=== PATIENT | male | born 1970 | race Caucasian/White ===

== ENCOUNTER 2019-05-04 23:24 | Emergency (ER) | payer OTHER ==
[2019-05-05] MEDS ORDERED: diphenhydrAMINE 50 MG CAP PO STA (00:19)
[2019-05-05] MEDS ORDERED: FAMOTIDINE 20 MG TAB PO STA (00:19)
[2019-05-05] MEDS ORDERED: predniSONE 20 MG TAB PO STA (00:19)
[2019-05-05 01:11] VITALS: BP 187/90; PULSE 92; RESP 16; TEMP 98.6
--- NOTE | 2019-05-18 09:34 | ED ---
Allergic Reaction HPI - General Chief complaint: Allergic Reaction Stated complaint: Allergic Reaction- Diff Breathing Time Seen by Provider: 05/05/19 00:12 Source: patient, family Mode of arrival: ambulatory Limitations: no limitations - History of Present Illness Initial Comments: is a 48-year-old man who presents to have evaluation of swelling to his forehead. Patient states that he was near his pool when he believes he was either bitten or stung by an insect forehead. He states that there was really much more swelling than he thought there should be so he wanted to be evaluated for ALLERGIC reaction. The patient is not having any dyspnea or wheezing. No tongue swelling. No generalized rash MD Complaint: facial swelling -: hour(s) Exposure: insect bite Symptoms: itching Severity: moderate Treatment Prior to Arrival: none Previous Allergy History: none - Related Data Previous Rx's Medication Instructions Recorded Famotidine [Pepcid] 20 mg PO BID #14 tablet 05/05/19 predniSONE 60 mg PO DAILY #30 tab 05/05/19 Allergies Allergy/AdvReac Type Severity Reaction Status Date / Time Penicillins Allergy Unknown Verified 05/04/19 23:32 Childhood Review of Systems ROS Statement: Those systems with pertinent positive or pertinent negative responses have been documented in the HPI. ROS Other: All systems not noted in ROS Statement are negative. Constitutional: Denies: fever Eyes: Denies: eye pain ENT: Denies: throat pain Respiratory: Denies: cough, dyspnea, wheezes Skin: Reports: as per HPI, lesions. Denies: rash Neurological: Denies: headache Past Medical History Past Medical History: No Reported History History of Any Multi-Drug Resistant Organisms: None Reported Additional Past Surgical History / Comment(s): kidney stones Past Psychological History: No Psychological Hx Reported Smoking Status: Current every day smoker Past Alcohol Use History: Occasional Past Drug Use History: None Reported General Exam Limitations: no limitations General appearance: alert, in no apparent distress Head exam: Present: atraumatic, normocephalic, other (The patient has a large wheal centered on the forehead approximately 5 cm diameter) Eye exam: Present: normal appearance. Absent: scleral icterus, conjunctival injection, periorbital swelling, periorbital tenderness ENT exam: Present: normal oropharynx, mucous membranes moist Respiratory exam: Present: normal lung sounds bilaterally. Absent: respiratory distress, wheezes, rales, rhonchi, stridor Cardiovascular Exam: Present: regular rate, normal rhythm, normal heart sounds. Absent: systolic murmur, diastolic murmur, rubs, gallop GI/Abdominal exam: Present: soft. Absent: tenderness Neurological exam: Present: alert Skin exam: Present: warm, dry, intact, normal color, other (See above) Course Vital Signs 05/04/19 05/04/19 05/05/19 23:29 23:40 01:09 Temperature 98.4 F 98.6 F Pulse Rate 103 H 92 Respiratory 20 20 16 Rate Blood Pressure 173/111 187/90 O2 Sat by Pulse 96 95 Oximetry Disposition Clinical Impression: Allergic reaction to insect sting Disposition: HOME SELF-CARE Condition: Good Instructions (If sedation given, give patient instructions): General Allergic Reaction (ED) Prescriptions: Famotidine [Pepcid] 20 mg PO BID #14 tablet predniSONE 60 mg PO DAILY #30 tab Is patient prescribed a controlled substance at d/c from ED?: No Referrals: None,Stated [Primary Care Provider] - 1-2 days
== END 2019-05-05 01:09 | disposition home or self-care (01) ==
LOC: EC 23:24
DX: T63.481A Toxic effect of venom of other arthropod, accidental (unintentional), initial encounter (principal); F17.200 Nicotine dependence, unspecified, uncomplicated; Z88.0 Allergy status to penicillin
CPT/HCPCS: 99283; J7512

== ENCOUNTER 2020-02-14 08:12 | Emergency (ER) | payer OTHER ==
[2020-02-14 08:21] VITALS: TEMP 97.6
[2020-02-14] MEDS ORDERED: LABETALOL 5 MG/ML VIAL MDV IVP STA (08:32)
[2020-02-14] MEDS ORDERED: SODIUM CHLORIDE 0.9% 500 ML 500 ML IV ONE (08:32)
[2020-02-14 09:10] LABS: Basophils # (A) 0.1 k/uL (0-0.2); Basophils % (A) 1 %; Eosinophils # (A) 0.3 k/uL (0-0.7); Eosinophils % (A) 3 %; HCT 49.6 % (39.0-53.0); HGB 17.2 gm/dL (13.0-17.5); Lymphocytes # (A) 1.4 k/uL (1.0-4.8); Lymphocytes % (A) 16 %; MCH 30.7 pg (25.0-35.0); MCHC 34.7 g/dL (31.0-37.0); MCV 88.4 fL (80.0-100.0); Mean Platelet Volume 8.2; Monocytes # (A) 0.3 k/uL (0-1.0); Monocytes % (A) 4 %; Neutrophils # (A) 6.9 k/uL (1.3-7.7); Neutrophils % (A) 76 %; Platelet Count 255 k/uL (150-450); RBC 5.61 m/uL (4.30-5.90); RDW 12.1 % (11.5-15.5); WBC 9.1 k/uL (3.8-10.6)
--- NOTE | 2020-02-14 09:20 | ED ---
General Adult HPI - General Chief complaint: Headache Stated complaint: hypertension Time Seen by Provider: 02/14/20 08:22 Source: patient, RN notes reviewed Mode of arrival: wheelchair Limitations: no limitations - History of Present Illness Initial comments: This a 49-year-old male presents emergency Department chief complaint hypertension, intermittent headaches. Patient states last week she's had almost daily headaches. He states he did come and go and they do go away. Patient denies any associated blurred vision, focal weakness, nausea vomiting no chest pain or shortness breath at this time. He states that he has pain 1-2 weeks ago. Patient states that he used to be on hypertension meds and states he used to be on lisinopril with hydrochlorothiazide. Patient states he discontinued this because he is having gout issues and also states that he change his diet in which she felt that he did not need to be on a blood pressure medication anymore. Patient has complaint of back pain, abdominal pain. - Related Data Previous Rx's Medication Instructions Recorded Famotidine [Pepcid] 20 mg PO BID #14 tablet 05/05/19 predniSONE 60 mg PO DAILY #30 tab 05/05/19 Lisinopril [Zestril] 10 mg PO DAILY #30 tab 02/14/20 Allergies Allergy/AdvReac Type Severity Reaction Status Date / Time Penicillins Allergy Unknown Verified 05/04/19 23:32 Childhood Review of Systems ROS Statement: Those systems with pertinent positive or pertinent negative responses have been documented in the HPI. ROS Other: All systems not noted in ROS Statement are negative. Past Medical History Past Medical History: No Reported History Additional Past Medical History / Comment(s): piloneal cyst History of Any Multi-Drug Resistant Organisms: None Reported Additional Past Surgical History / Comment(s): kidney stones Past Psychological History: No Psychological Hx Reported Smoking Status: Current every day smoker Past Alcohol Use History: Occasional Past Drug Use History: None Reported General Exam Limitations: no limitations General appearance: alert, in no apparent distress Head exam: Present: atraumatic, normocephalic, normal inspection Eye exam: Present: normal appearance, PERRL, EOMI. Absent: scleral icterus, conjunctival injection, periorbital swelling ENT exam: Present: normal exam, normal oropharynx, mucous membranes moist Neck exam: Present: normal inspection, full ROM. Absent: tenderness, meningismus, lymphadenopathy Respiratory exam: Present: normal lung sounds bilaterally. Absent: respiratory distress, wheezes, rales, rhonchi, stridor Cardiovascular Exam: Present: regular rate (Heart rate was 112 on triage though 92 on exam.), normal rhythm, normal heart sounds. Absent: systolic murmur, diastolic murmur, rubs, gallop, clicks GI/Abdominal exam: Present: soft, normal bowel sounds. Absent: distended, tenderness, guarding, rebound, rigid Extremities exam: Present: other (Upper and lower extremity pulses equal bilaterally) Neurological exam: Present: alert, oriented X3, CN II-XII intact Skin exam: Present: warm, dry, intact, normal color. Absent: rash Course Vital Signs 02/14/20 02/14/20 02/14/20 08:15 09:22 09:30 Temperature 97.6 F Pulse Rate 112 H 93 81 Respiratory 18 18 20 Rate Blood Pressure 182/135 149/102 149/102 O2 Sat by Pulse 98 97 96 Oximetry 02/14/20 02/14/20 09:36 10:00 Temperature Pulse Rate 82 82 Respiratory 18 18 Rate Blood Pressure 137/88 146/96 O2 Sat by Pulse 97 97 Oximetry Medical Decision Making - Medical Decision Making Patient presented for intermittent headaches. CT does not show any acute process. Patient has no remarkable deficits no weakness right or left-sided with concerned a CT as it was red. Patient feels improved after blood pressure control with labetalol. Patient be discharged on lisinopril 10 mg daily. Return parameters discussed close follow-up discussed. EKG labs and CT reviewed with Dr. castañeda - Lab Data Result diagrams: 02/14/20 09:00 02/14/20 09:00 Lab Results 02/14/20 02/14/20 02/14/20 Range/Units 09:00 09:00 09:00 WBC 9.1 (3.8-10.6) k/uL RBC 5.61 (4.30-5.90) m/uL Hgb 17.2 (13.0-17.5) gm/dL Hct 49.6 (39.0-53.0) % MCV 88.4 (80.0-100.0) fL MCH 30.7 (25.0-35.0) pg MCHC 34.7 (31.0-37.0) g/dL RDW 12.1 (11.5-15.5) % Plt Count 255 (150-450) k/uL Neutrophils % 76 % Lymphocytes % 16 % Monocytes % 4 % Eosinophils % 3 % Basophils % 1 % Neutrophils # 6.9 (1.3-7.7) k/uL Lymphocytes # 1.4 (1.0-4.8) k/uL Monocytes # 0.3 (0-1.0) k/uL Eosinophils # 0.3 (0-0.7) k/uL Basophils # 0.1 (0-0.2) k/uL Sodium 136 L (137-145) mmol/L Potassium 3.9 (3.5-5.1) mmol/L Chloride 102 (98-107) mmol/L Carbon Dioxide 25 (22-30) mmol/L Anion Gap 9 mmol/L BUN 14 (9-20) mg/dL Creatinine 0.72 (0.66-1.25) mg/dL Est GFR (CKD-EPI)AfAm >90 (>60 ml/min/1.73 sqM) Est GFR (CKD-EPI)NonAf >90 (>60 ml/min/1.73 sqM) Glucose 142 H (74-99) mg/dL Calcium 9.5 (8.4-10.2) mg/dL Magnesium 1.9 (1.6-2.3) mg/dL Total Bilirubin 0.6 (0.2-1.3) mg/dL AST 25 (17-59) U/L ALT 23 (4-49) U/L Alkaline Phosphatase 94 (38-126) U/L Troponin I <0.012 (0.000-0.034) ng/mL Total Protein 7.5 (6.3-8.2) g/dL Albumin 4.5 (3.5-5.0) g/dL Disposition Clinical Impression: Headache, Hypertension Disposition: HOME SELF-CARE Condition: Stable Instructions (If sedation given, give patient instructions): Hypertension (ED) Additional Instructions: Please return to the Emergency Department if symptoms worsen or any other concerns. Prescriptions: Lisinopril [Zestril] 10 mg PO DAILY #30 tab Is patient prescribed a controlled substance at d/c from ED?: No Referrals: None,Stated [Primary Care Provider] - 1-2 days Time of Disposition: 10:09
[2020-02-14 09:23] LABS: ALT 23 U/L (4-49); AST 25 U/L (17-59); African American GFR (CKD) >90 (>60 ml/min/1.73 sqM); Albumin 4.5 g/dL (3.5-5.0); Alkaline Phosphatase 94 U/L (38-126); Anion Gap 9 mmol/L; Blood Urea Nitrogen 14 mg/dL (9-20); Calcium 9.5 mg/dL (8.4-10.2); Carbon Dioxide 25 mmol/L (22-30); Chloride 102 mmol/L (98-107); Glucose 142 mg/dL (74-99); Magnesium 1.9 mg/dL (1.6-2.3); Non-African American GFR(CKD) >90 (>60 ml/min/1.73 sqM); Potassium 3.9 mmol/L (3.5-5.1); Sodium 136 mmol/L (137-145); Total Bilirubin 0.6 mg/dL (0.2-1.3); Total Protein 7.5 g/dL (6.3-8.2)
[2020-02-14 09:36] VITALS: PULSE 82; RESP 18
--- NOTE | 2020-02-14 09:54 | CT ---
EXAMINATION TYPE: CT brain wo con DATE OF EXAM: 02/14/2020 COMPARISON: None INDICATION: PRIEST, hypertension DLP: 1064.4 mGycm, Automated exposure control for dose reduction was used. CONTRAST: None CT of the brain is performed utilizing 3 mm thick sections through the posterior fossa and 3 mm thick sections through the remaining calvarium. Study is performed within 24 hours of arrival to the hosp ital. No abnormal hyperdensity is present to suggest an acute intracranial hemorrhage. No mass lesion is evident. No acute infarcts are evident. There may be somewhat hyperintense right middle cerebral artery. This may be due to the angle of the Gantry and there is some similar density within the less well visualiz ed left middle cerebral artery. Correlate for right middle cerebral artery distribution neurologic sy mptoms. No other underlying radiographic evidence of MCA infarct. Ventricles and sulci are appropriate for the patient age. Paranasal sinuses and mastoid air cells within the [id number] are clear. IMPRESSIONS: 1. No acute intracranial process. Please see above discussion.
[2020-02-14 10:02] VITALS: BP 146/96
== END 2020-02-14 10:11 | disposition home or self-care (01) ==
LOC: EC 08:12
DX: I10 Essential (primary) hypertension (principal); R51 Headache; M54.9 Dorsalgia, unspecified; R10.9 Unspecified abdominal pain; F17.200 Nicotine dependence, unspecified, uncomplicated; Z88.0 Allergy status to penicillin
CPT/HCPCS: 36415; 70450; 80053; 83735; 84484; 85025; 93005; 96374; 99284

== ENCOUNTER → 2020-04-25 | Outpatient (CLI) | payer OTHER ==
--- NOTE | 2020-04-25 15:19 | CT ---
EXAMINATION TYPE: CT sinus wo con DATE OF EXAM: 04/25/2020 COMPARISON: CT brain February 14, 2020. HISTORY: chronic sinusitis per order. Symptoms of headache per patient. CT DLP: 611 mGycm. Automated Exposure Control for Dose Reduction was Utilized. TECHNIQUE: CT scan of the sinuses is performed without contrast, axial images are obtained, coronal r eformatted images are also reviewed. FINDINGS: A mild to moderate lobulated mucosal thickening in the inferior aspect of the bilateral max illary sinuses with 8 mm mucous retention cyst or polyp anteriorly on the right image 29. Remainder p aranasal sinuses are clear. No suspicious opacification or air-fluid levels is present. The ostiomea chase complex is patent bilaterally on coronal image 28. Visualized portion of mastoid air cells show no abnormal opacification. The globes are intact bilate rally. IMPRESSION: Chronic bilateral maxillary sinus disease. No acute sinusitis.
== END | disposition home or self-care (01) ==
LOC: RADCTMAIN 14:57
PROVIDERS: ATTEND Family Medicine
DX: J32.0 Chronic maxillary sinusitis (principal)
CPT/HCPCS: 70486

== ENCOUNTER 2020-05-22 08:19 | Day surgery (SDC) | payer OTHER ==
[2020-05-17 10:50] VITALS: BMI 31.1
[~2020-05-22 08:19] MED LIST: DEXAMETHASONE SOD PHOSPHATE 10 MG/ML 1 ML VIAL IV ONE; DEXAMETHASONE SOD PHOSPHATE 4 MG/ML 1 ML VIAL IV ONE; FAMOTIDINE 20 MG/2 ML VIAL IV ONE; HYDROmorphone 0.5 MG/0.5 ML SYRINGE IVP PRN; LACTATED RINGERS 1,000 ML IV SCH; ONDANSETRON 4 MG/2 ML VIAL IVP ONE
[2020-05-22] MEDS: OXYMETAZOLINE 0.05% NASL SPRAY 1 SPRAY BOTTLE NASAL ONE ×5 (08:50→09:10)
[2020-05-22] MEDS ORDERED: OXYMETAZOLINE 0.05% NASL SPRAY 1 SPRAY BOTTLE ONE (08:50)
[2020-05-22] MEDS ORDERED: ONDANSETRON 4 MG/2 ML VIAL ONE (08:50)
[2020-05-22] MEDS ORDERED: LIDOCAINE 1% (10MG/ML) FOR IV START INTRADERMA ONE (08:56)
[2020-05-22] MEDS ORDERED: ePHEDrine SULFATE/0.9% NACL/PF 50 MG/5 ML SYRINGE IV ONE (10:32)
[2020-05-22] MEDS ORDERED: SUCCINYLCHOLINE CHLORIDE 100 MG/5 ML SYR IV ONE (10:32)
[2020-05-22] MEDS ORDERED: fentaNYL (PF) 50 MCG/ML 2 ML AMP ONE (10:32)
[2020-05-22] MEDS ORDERED: PROPOFOL 10 MG/ML 20 ML VIAL IV ONE (10:32)
[2020-05-22] MEDS ORDERED: LIDOCAINE 1% INJ 10MG/ML (20 ML MDV) ONE (10:32)
[2020-05-22] MEDS ORDERED: MIDAZOLAM 2 MG/2 ML VIAL ONE (10:32)
[2020-05-22] MEDS ORDERED: DEXAMETHASONE SOD PHOSPHATE 10 MG/ML 1 ML VIAL ONE (10:32)
[2020-05-22] MEDS ORDERED: LIDOCAINE 1%-EPI 1:100,000 20 ML VIAL SUBMUCOSAL ONE (10:53)
[2020-05-22] MEDS ORDERED: BACITRACIN ZINC 500 UNIT/GM OINT 28.4 GM TUBE TOPICAL ONE (11:36)
--- NOTE | 2020-05-22 11:43 | P.OP ---
Date of Procedure: 05/22/20 Preoperative Diagnosis: Deviated nasal septum Inferior turbinate hypertrophy Chronic sinusitis Postoperative Diagnosis: Same Procedure(s) Performed: Septoplasty Outfracture and submucous resection of the inferior turbinates Bilateral endoscopic sinus surgery including bilateral maxillary antrostomy with removal of tissue from the maxillary sinuses Anesthesia: TARYN Surgeon: Don Mccarty Estimated Blood Loss (ml): 5 Pathology: other (Nasal septal bone and cartilage and sinus contents) Condition: stable Disposition: PACU Indications for Procedure: This is a 49-year-old white male whose had difficulties with chronic nasal airway obstruction and recurrent/chronic sinusitis with computed tomography scan showing evidence of chronic sinusitis in the maxillary sinuses Operative Findings: Nasal septal deviation to the right with inferior turbinate hypertrophy bilaterally. Obstruction of the ostiomeatal complexes bilaterally and small cysts within the maxillary sinuses Description of Procedure: The patient was brought into the operative suite and placed in a supine position. The patient underwent induction of general anesthesia with oral endotracheal intubation without difficulty. The patient was prepped and draped in the usual aseptic fashion with the orbits in the operating field for monitoring to the case and the computed tomography scan was on the computer screen for review throughout the case. 1% lidocaine with 1 :100,000 epinephrine was infused submucosally into both sides of the nasal septum as well as the lateral nasal wall and anterior tips of the middle turbinates. While this was taking vasoconstrictive effect the inferior turbinates were infractured with [place] elevator and partial submucous resection of the inferior turbinates was performed with a portion of the submucosal soft tissue and the inferior turbinate bone removed with Coblation device. The inferior turbinates were then outfractured with the [place] elevator. A left hemitransfixion incision was then made with the mucoperichondrial and mucoperiosteal flap on the left elevated. The bony cartilaginous junction was disarticulated and the mucoperiosteal flap on the right was elevated. Bony nasal septal deformities were removed with Kristel forceps and an inferior cartilaginous strip was removed leaving a full 1.5 cm caudal strut. Checking intranasally this corrected the nasoseptal deformities and the hemitransfixion incision was closed with a running 4-0 chromic suture. Full 0 endoscopic examination is performed bilaterally. Beginning on the left, the middle turbinate was medialized. The maxillary ostium was located with a ballpoint probe and an infundibulotomy was performed followed by uncinectomy. The maxillary antrostomy was enlarged at the expense of the anterior and posterior fontanelle taking care anteriorly not to injure the lacrimal bone. The maxillary sinus was evaluated with 30 and 70 endoscope .[Abnormal appearing tissue was removed from the maxillary sinus-these appeared to be small cysts and were removed with giraffe forceps. Xerogel nasal dressing was placed in the middle meatus bilaterally under direct visualization]. Bilateral Solares airway splints coated with bacitracin ointment were placed and sutured transseptally with a 4-0 nylon suture. The patient was suctioned in oral gastric fashion and was allowed to emerge from general anesthesia having tolerated procedure well and was extubated in the operating suite and transferred to the postoperative recovery area in satisfactory condition.
[2020-05-22 11:55] VITALS: TEMP 97.5
[2020-05-22] MEDS ORDERED: HYDROcodone/APAP 7.5-325MG 1 EACH TAB ONE (13:10)
[2020-05-22] MEDS ORDERED: HYDROcodone/APAP 7.5-325MG 1 EACH TAB PO ONE (13:11)
[2020-05-22] MEDS ORDERED: LACTATED RINGERS 1,000 ML IV ONE (13:17)
[2020-05-22 13:43] VITALS: BP 148/95; PULSE 100; RESP 16
--- NOTE | 2020-06-25 17:21 | OP ---
OPERATIVE REPORT ADDENDUM: SURGERY DATE: 05/22/2020 Note that the endoscopic sinus surgery also included right maxillary antrostomy with removal of tissue from the right maxillary sinus. It was noted that this was performed on the left. Once the left-sided surgery was completed, attention was turned to the right, where the right-sided procedures were followed as they were on the left, including medialization of the middle turbinate, infundibulotomy, uncinectomy, maxillary antrostomy with removal of tissue from the maxillary sinus, including under 30 and 70 degree endoscopic evaluation. Once this was completed, the 0 gel nasal dressing was placed in the middle meatus under direct visualization followed by the Solares airway splints. MMODL / IJN: [id number] /
== END 2020-05-22 14:00 | disposition home or self-care (01) ==
LOC: OR 08:19
PROVIDERS: ATTEND Otolaryngology
DX: J34.2 Deviated nasal septum (principal); J34.3 Hypertrophy of nasal turbinates; J32.0 Chronic maxillary sinusitis; I10 Essential (primary) hypertension; Z72.0 Tobacco use; J30.89 Other allergic rhinitis; Z79.899 Other long term (current) drug therapy
CPT/HCPCS: 30520; 30140; 31267; J1100; J2405; J0690; 88300; 88305

== ENCOUNTER → 2020-07-30 | Outpatient (CLI) | payer OTHER ==
--- NOTE | 2020-07-30 21:23 | CT ---
EXAMINATION TYPE: CT chest w con DATE OF EXAM: 07/30/2020 COMPARISON: NONE HISTORY: Cough x8 months. Pt states antibiotics aren't working. CT DLP: 471.80 mGycm. Automated Exposure Control for Dose Reduction was Utilized. TECHNIQUE: CT scan of the thorax is performed following with IV Contrast, patient injected with 100 mL of Isovue 300. FINDINGS: LUNGS: Mild to moderate underlying emphysematous change greatest in the upper lobes. No suspicious no dules or masses. No suspicious focal groundglass opacity or consolidation. No pleural effusion or pne umothorax seen bilaterally. MEDIASTINUM: There are no greater than 1 cm hilar or mediastinal lymph nodes. No pericardial effusi on is seen. Heart size upper limits of normal. Coronary artery calcification in the LAD distribution . OTHER: Contracted gallbladder. IMPRESSION: Mild to moderate underlying emphysematous change without suspicious acute pulmonary proce ss.
== END | disposition home or self-care (01) ==
LOC: RADCTMAIN 18:10
PROVIDERS: ATTEND Family Medicine
DX: J43.9 Emphysema, unspecified (principal)
CPT/HCPCS: 71260; Q9967

== ENCOUNTER → 2020-11-28 | Outpatient (CLI) | payer OTHER ==
--- NOTE | 2020-11-28 11:11 | CT ---
EXAMINATION TYPE: CT brain wo con DATE OF EXAM: 11/28/2020 COMPARISON: 02/14/2020 INDICATION: Headache DLP: 995.50 mGycm, Automated exposure control for dose reduction was used. CONTRAST: None CT of the brain is performed utilizing 3 mm thick sections through the posterior fossa and 3 mm thick sections through the remaining calvarium. Study is performed within 24 hours of arrival to the hosp ital. No abnormal hyperdensity is present to suggest an acute intracranial hemorrhage. No mass lesion is evident. No acute infarcts are evident. Ventricles and sulci are appropriate for the patient age. Paranasal sinuses and mastoid air cells within the [id number] are clear. IMPRESSIONS: 1. Normal CT Brain
--- NOTE | 2020-11-28 18:13 | CT ---
EXAMINATION TYPE: CT neck chest w con DATE OF EXAM: 11/28/2020 COMPARISON: CT chest 07/30/2020 HISTORY: Hemoptysis and headache CT DLP: 1288.50 mGycm CONTRAST: Patient injected with 100 ml mL of Isovue 300. TECHNIQUE: Axial images at 3 mm thick sections. Reconstructed images in the coronal plane and sagitt al plane are reviewed. FINDINGS: Limited CT sections are obtained the lung apices. The lung apices appear clear. CT neck: The torus tubarius and fossa of Rosenmuller are normal. Director [employer] spaces are normal. Para nasal sinuses and mastoid air cells are clear. Parotid glands appear normal and symmetrical. Submandibular glands, are normal. Parapharyngeal spac es are normal. No suspicious adenopathy is evident. The hypopharynx appears within normal limits. Vocal cord level appear symmetrical. Thyroid as visualized is normal. Osseous structures are normal. IMPRESSIONS: 1. No acute abnormalities EXAMINATION TYPE: CT neck chest w con DATE OF EXAM: 11/28/2020 COMPARISON: 07/30/2020 HISTORY: Hemoptysis and headache CT DLP: 1288.50 mGycm, Automated exposure control for dose reduction was used. CONTRAST: Performed injected with 100 ml mL of Isovue 300. TECHNIQUE: Axial images were obtained at 5 mm thick sections. Reconstructed images are reviewed on [employer] computer in the coronal plane. FINDINGS: Portion of the thyroid visualized is normal. No suspicious lung nodules or focal infiltrates are present. Emphysematous changes are evident. No si gnificant interval changes evident. No enlarged mediastinal or hilar adenopathy is evident. The ascending aorta diameter at the level o f the main pulmonary artery is 3.8 cm. The main pulmonary artery diameter at the bifurcation is 2.[address] sections are obtained through the upper abdomen. Abdomen is essentially unremarkable. IMPRESSIONS: 1. No acute abnormality. 2. COPD.
== END | disposition home or self-care (01) ==
LOC: RADCTMAIN 09:32
PROVIDERS: ATTEND Otolaryngology
DX: R04.2 Hemoptysis (principal); R51.9 Headache, unspecified; R22.1 Localized swelling, mass and lump, neck; J44.9 Chronic obstructive pulmonary disease, unspecified
CPT/HCPCS: 70491; 70450; 71260; Q9967

== ENCOUNTER 2020-12-16 10:26 | Observation (INO) | payer OTHER ==
[2020-12-16 10:31] VITALS: TEMP 98.4
[2020-12-16] MEDS ORDERED: ASPIRIN 81 MG PO STA (10:42)
[2020-12-16] MEDS ORDERED: NITROGLYCERIN SL TABS 0.4 MG TAB SUBLINGUAL STA (10:42)
[2020-12-16 11:03] LABS: Basophils # (A) 0.1 k/uL (0-0.2); Basophils % (A) 1 %; Eosinophils # (A) 0.2 k/uL (0-0.7); Eosinophils % (A) 2 %; HCT 48.8 % (39.0-53.0); HGB 16.6 gm/dL (13.0-17.5); Lymphocytes # (A) 1.1 k/uL (1.0-4.8); Lymphocytes % (A) 9 %; MCH 30.3 pg (25.0-35.0); Mean Platelet Volume 8.7; Monocytes # (A) 0.8 k/uL (0-1.0); Monocytes % (A) 6 %; Neutrophils # (A) 10.1 k/uL (1.3-7.7); Neutrophils % (A) 82 %; Platelet Count 260 k/uL (150-450); RBC 5.48 m/uL (4.30-5.90); RDW 12.3 % (11.5-15.5); WBC 12.4 k/uL (3.8-10.6)
[2020-12-16 11:14] LABS: ALT 20 U/L (4-49); AST 23 U/L (17-59); African American GFR (CKD) >90 (>60 ml/min/1.73 sqM); Albumin 4.5 g/dL (3.5-5.0); Alkaline Phosphatase 88 U/L (38-126); Anion Gap 11 mmol/L; Blood Urea Nitrogen 11 mg/dL (9-20); Calcium 9.9 mg/dL (8.4-10.2); Carbon Dioxide 26 mmol/L (22-30); Chloride 106 mmol/L (98-107); Glucose 111 mg/dL (74-99); Non-African American GFR(CKD) >90 (>60 ml/min/1.73 sqM); Potassium 3.5 mmol/L (3.5-5.1); Sodium 143 mmol/L (137-145); Total Bilirubin 0.6 mg/dL (0.2-1.3); Total Protein 7.5 g/dL (6.3-8.2)
[2020-12-16] MEDS ORDERED: NITROGLYCERIN OINT 1 INCH/GM PACKET TOPICAL STA (11:14)
--- NOTE | 2020-12-16 11:14 | XR ---
EXAMINATION TYPE: XR chest 2V DATE OF EXAM: 12/16/2020 COMPARISON: NONE TECHNIQUE: PA and lateral views submitted. HISTORY: Chest pain FINDINGS: The lungs are clear and there is no pneumothorax, pleural effusion, or focal pneumonia. Heart size normal. No overt failure. Biapical pleural thickening. IMPRESSION: 1. No acute process.
--- NOTE | 2020-12-16 11:17 | ED ---
Chest Pain HPI - General Chief Complaint: Chest Pain Stated Complaint: chest pain Time Seen by Provider: 12/16/20 10:32 Source: patient, RN notes reviewed Mode of arrival: wheelchair Limitations: no limitations - History of Present Illness Initial Comments: This a 50-year-old male presents emergency Department with chief complaint of chest pain. Patient states started about 9:30 morning. Patient states that he slipped getting into his truck. No pain with this. He states he was driving started having left-sided anterior chest pain that radiated to his left shoulder denies any back pain he states the pain doesn't feel short of breath. Does not have any resting shortness of breath. Denies any abdominal pain no leg swelling or pain. Patient does admit that isn't a long history of hypertension, smoking history and family heart disease. - Related Data Home Medications Medication Instructions Recorded Confirmed amLODIPine [Norvasc] 10 mg PO HS 05/17/20 05/22/20 lisinopriL 20 mg PO HS 05/17/20 05/22/20 Allergies Allergy/AdvReac Type Severity Reaction Status Date / Time Penicillins Allergy Unknown Verified 12/16/20 10:31 Childhood Review of Systems ROS Statement: Those systems with pertinent positive or pertinent negative responses have been documented in the HPI. ROS Other: All systems not noted in ROS Statement are negative. EKG Findings - EKG Comments: EKG Findings:: EKG performed at 10:40 normal sinus rhythm rate of 84 [place] 198 QRS 108 QT/QTC 386/456 Past Medical History Past Medical History: Hypertension Additional Past Medical History / Comment(s): Sinus problems. History of Any Multi-Drug Resistant Organisms: None Reported Additional Past Surgical History / Comment(s): Kidney stones, Pilonidial Cyst removed, sinus Past Anesthesia/Blood Transfusion Reactions: No Reported Reaction Past Psychological History: No Psychological Hx Reported Smoking Status: Current every day smoker Past Alcohol Use History: Occasional Past Drug Use History: None Reported - Past Family History Mother Family Medical History: Cancer General Exam Limitations: no limitations General appearance: alert, in no apparent distress Head exam: Present: atraumatic, normocephalic, normal inspection Eye exam: Present: normal appearance, PERRL, EOMI. Absent: scleral icterus, conjunctival injection, periorbital swelling ENT exam: Present: normal exam, normal oropharynx, mucous membranes moist Neck exam: Present: normal inspection, full ROM. Absent: tenderness, meningismus, lymphadenopathy Respiratory exam: Present: normal lung sounds bilaterally. Absent: respiratory distress, wheezes, rales, rhonchi, stridor Cardiovascular Exam: Present: regular rate, normal rhythm, normal heart sounds. Absent: systolic murmur, diastolic murmur, rubs, gallop, clicks GI/Abdominal exam: Present: soft, normal bowel sounds. Absent: distended, tenderness, guarding, rebound, rigid Extremities exam: Absent: pedal edema, calf tenderness Neurological exam: Present: alert, oriented X3, CN II-XII intact Skin exam: Present: warm, dry, intact, normal color. Absent: rash Course Vital Signs 12/16/20 12/16/20 10:28 11:11 Temperature 98.4 F Pulse Rate 98 80 Respiratory 16 18 Rate Blood Pressure 122/78 O2 Sat by Pulse 97 97 Oximetry Chest Pain MDM - MDM 50-year-old male For chest pain, labs, chest x-ray Including EKG and first set of troponin is negative. Patient does have multiple risk factors and relief wit h Nitro. I did update the patient stating that he should stay in the hospital for admission. [facility] Dis[facility] Clinical Impression: Chest pain Disposition: ADMITTED IP TO THIS HOSP Condition: Fair Referrals: None,Stated [Primary Care Provider] - 1-2 days
[2020-12-16 11:18] LABS: Partial Thromboplastin Time 26.2 sec (22.0-30.0); Prothrombin Time 10.8 sec (9.0-12.0)
[2020-12-16] MEDS ORDERED: HEPARIN SODIUM,PORCINE 5,000 UNIT/ML 1 ML VIAL IV PRN (12:28)
[2020-12-16] MEDS ORDERED: HEPARIN SODIUM,PORCINE 5,000 UNIT/ML 1 ML VIAL IV ONE (12:28)
[2020-12-16] MEDS ORDERED: NITROGLYCERIN SL TABS 0.4 MG TAB SUBLINGUAL PRN (12:28)
[2020-12-16] MEDS ORDERED: HEPARIN SOD,PORK IN 0.45% NACL 25,000 UNIT in 0.45% NACL 1 250ML.BAG IV SCH (12:30)
[2020-12-16 15:52] VITALS: RESP 16
--- NOTE | 2020-12-16 17:47 | P.DS ---
Providers Date of admission: 12/16/20 12:23 Attending physician: Nicanor Delgado MD Consults: 12/16/20 12:28 Consult Physician Urgent Consulting Provider: Lonnie Owens Consult Reason/Comments: chest pain Do you want consulting provider notified?: Yes Primary care physician: Stated None Hospital Course: Refer to my HPI for further details Patient Condition at Discharge: Fair Plan - Discharge Summary New Discharge Prescriptions: New Omeprazole [PriLOSEC] 40 mg PO AC-BRKFST #30 capsule. No Action amLODIPine [Norvasc] 10 mg PO HS lisinopriL 20 mg PO HS Discharge Medication List amLODIPine [Norvasc] 10 mg PO HS 05/17/20 [History] lisinopriL 20 mg PO HS 05/17/20 [History] Omeprazole [PriLOSEC] 40 mg PO AC-BRKFST #30 capsule. 12/16/20 [Rx] Follow up Appointment(s)/Referral(s): Liz Dean MD [STAFF PHYSICIAN] - 1 Week None,Stated [Primary Care Provider] - 1-2 days Discharge Disposition: HOME SELF-CARE
--- NOTE | 2020-12-16 17:47 | P.HPIM ---
History of Present Illness Patient developed pleasant 50-year-old man came in with complaints of epigastric abdominal discomfort which is sharp pain radiating to the back. Patient elicits acid reflux because the he ate really sauce half an hour before this event. Patient says today is his birthday and he wanted to go home he doesn't believe it's a heart related pain. Patient had a stress test about 2 years ago which was within normal limits.. Patient epigastric pain although may have been relieved with a nitroglycerin. Patient denied any diaphoresis patient pain is constant associated with nausea denied any shortness of breath lightheadedness. Patient does smoke. Does have history of hypertension. Patient does have a police specialist who he usually follows up with. His epigastric abdominal pain radiates to the back because of which have and lipase which was within normal limits. Review of Systems REVIEW OF SYSTEMS: CONSTITUTIONAL: No fever, no malaise, no fatigue. HEENT: No recent visual problems or hearing problems. Denied any sore throat. CARDIOVASCULAR: No orthopnea, PND, no palpitations, no syncope. PULMONARY: No shortness of breath, no cough, no hemoptysis. GASTROINTESTINAL: As mentioned in HPI NEUROLOGICAL: No headaches, no weakness, no numbness. HEMATOLOGICAL: Denies any bleeding or petechiae. GENITOURINARY: Denies any burning micturition, frequency, or urgency. MUSCULOSKELETAL/RHEUMATOLOGICAL: Denies any joint pain, swelling, or any muscle pain. ENDOCRINE: Denies any polyuria or polydipsia. The rest of the 14-point review of systems is negative. Past Medical History Past Medical History: Hypertension Additional Past Medical History / Comment(s): Sinus problems. History of Any Multi-Drug Resistant Organisms: None Reported Additional Past Surgical History / Comment(s): Kidney stones, Pilonidial Cyst removed, sinus Past Anesthesia/Blood Transfusion Reactions: No Reported Reaction Past Psychological History: No Psychological Hx Reported Smoking Status: Current every day smoker Past Alcohol Use History: Occasional Past Drug Use History: None Reported - Past Family History Mother Family Medical History: Cancer Medications and Allergies Home Medications Medication Instructions Recorded Confirmed Type amLODIPine [Norvasc] 10 mg PO HS 05/17/20 12/16/20 History lisinopriL 20 mg PO HS 05/17/20 12/16/20 History Omeprazole [PriLOSEC] 40 [facility] capsule. 12/16/20 Rx Allergies Allergy/AdvReac Type Severity Reaction Status Date / Time Penicillins Allergy Unknown Verified 12/16/20 12:38 Childhood Physical Exam Vitals: Vital Signs Temp Pulse Resp BP Pulse Ox 12/16/20 15:30 77 16 135/93 12/16/20 14:30 87 21 135/93 12/16/20 14:00 85 0 L 12/16/20 13:30 92 18 135/93 12/16/20 12:00 85 21 104/75 95 12/16/20 11:11 80 18 97 12/16/20 10:46 88 6 L 96 12/16/20 10:28 98.4 F 98 16 122/78 97 Intake and Output 12/16/20 12/16/20 12/16/20 06:59 14:59 22:59 Other: Weight 99.337 kg PHYSICAL EXAMINATION: GENERAL: The patient is alert and oriented x3, not in any acute distress. Well developed, well nourished. HEENT: Pupils are round and equally reacting to light. EOMI. No scleral icterus. No conjunctival pallor. Normocephalic, atraumatic. No pharyngeal erythema. No thyromegaly. CARDIOVASCULAR: S1 and S2 present. No murmurs, rubs, or gallops. PULMONARY: Chest is clear to auscultation, no wheezing or crackles. ABDOMEN: Soft, nontender, nondistended, normoactive bowel sounds. No palpable organomegaly. MUSCULOSKELETAL: No joint swelling or deformity. EXTREMITIES: No cyanosis, clubbing, or pedal edema. NEUROLOGICAL: Gross neurological examination did not reveal any focal deficits. SKIN: No rashes. Results CBC & Chem 7: 12/16/20 10:47 12/16/20 10:47 Labs: Abnormal Lab Results - Last 24 Hours (Table) 12/16/20 12/16/20 Range/Units 10:47 10:47 WBC 12.4 H (3.8-10.6) k/uL Neutrophils # 10.1 H (1.3-7.7) k/uL Creatinine 0.64 L (0.66-1.25) mg/dL Glucose 111 H (74-99) mg/dL Assessment and Plan Plan: -Chest pain: Atypical will rule out acute coronary syndromes patient had a recent stress us about couple years ago if patient's troponins are negative pat ient will be discharged today. EKGs were within normal limits. Patient will follow with his police specialist closely. -Possible gastritis or peptic ulcer disease:: Patient will be discharged on Protonix or Prilosec for about a month -Hypertension -nicotine use: Counseling was provided
[2020-12-16 19:15] VITALS: BP 135/83; PULSE 91
[2020-12-17] MEDS ORDERED: ASPIRIN 325 MG TAB PO SCH (09:00)
== END 2020-12-16 19:15 | disposition home or self-care (01) ==
LOC: EC 10:26 → 6NMEDSUR 12:23
PROVIDERS: ADMIT Internal Medicine; ATTEND Internal Medicine
DX: R07.89 Other chest pain (principal); K21.9 Gastro-esophageal reflux disease without esophagitis; I10 Essential (primary) hypertension; F17.200 Nicotine dependence, unspecified, uncomplicated; Z79.899 Other long term (current) drug therapy; Z88.0 Allergy status to penicillin; Z87.442 Personal history of urinary calculi; Z80.9 Family history of malignant neoplasm, unspecified
CPT/HCPCS: 96376; 96365; 96366; 99285; 36415; 93005; 83880; 80053; 83690; 83735; 84484; 85025; 85610; 85730; 87635; 71046; G0378; J1644 ×2

== ENCOUNTER 2025-03-21 13:35 | Emergency (ER) | payer BC, OTHER ==
[2025-03-21 13:55] VITALS: TEMP 97.4
[2025-03-21 15:12] LABS: Appearance,Urine Clear (Clear); Bilirubin,Urine Negative (Negative); Blood,Urine Trace (Negative); Color,Urine Yellow; Glucose,Urine (UA) Negative (Negative); Ketones,Urine Negative (Negative); Leukocyte Esterase,Urine Negative (Negative); Mucus,Urine Rare /hpf; Nitrite,Urine Negative (Negative); Protein,Urine Trace (Negative); RBC,Urine 6 /hpf (0-5); Specific Gravity,Urine 1.031 (1.001-1.035); Squamous Epithelial Cell,Urine 1 /hpf (0-4); Urobilinogen,Urine <2.0 mg/dL (<2.0); WBC,Urine 2 /hpf (0-5)
--- NOTE | 2025-03-21 15:19 | ED ---
General Adult HPI - General Chief complaint: Abdominal Pain Stated complaint: Right flank pain Time Seen by Provider: 03/21/25 13:53 Source: patient, RN notes reviewed Mode of arrival: ambulatory Limitations: no limitations - History of Present Illness Initial comments: This is a 54-year-old male with history including hypertension and nephrol ithiasis presenting for right flank pain (08/10) x 3 days. Patient states pain is constant and radiates to his right anterior thigh. States pain resolves slightly when walking but denies worsening pain with movement of torso. Patient states that this feels "internal". Endorses history of kidney stones, stating that this does not feel like kidney stones. Denies dysuria, increased urinary frequency, oliguria, hematuria. Endorses use of ibuprofen with no relief. Denies fever, chills, chest pain, dyspnea, N/V/D. Patient denies constipation, stating he had a normal bowel movement earlier today Onset/Timin -: days(s) Severity scale (1-10): 10 Consistency: constant - Related Data Home Medications Medication Instructions Recorded Confirmed amLODIPine [Norvasc] 10 mg PO HS 05/17/20 12/16/20 lisinopriL 20 mg PO HS 05/17/20 12/16/20 Previous Rx's Medication Instructions Recorded Omeprazole [PriLOSEC] 40 mg PO AC-MARLENEKFST #30 capsule. 12/16/20 Ibuprofen [Motrin] 800 mg PO Q8HR PRN #30 tab 03/21/25 Allergies Allergy/AdvReac Type Severity Reaction Status Date / Time Penicillins Allergy Unknown Verified 03/21/25 13:55 Childhood Review of Systems ROS Statement: Those systems with pertinent positive or pertinent negative responses have been documented in the HPI. ROS Other: All systems not noted in ROS Statement are negative. Past Medical History Past Medical History: Hypertension Additional Past Medical History / Comment(s): Sinus problems. History of Any Multi-Drug Resistant Organisms: None Reported Additional Past Surgical History / Comment(s): Kidney stones, Pilonidial Cyst removed, sinus Past Anesthesia/Blood Transfusion Reactions: No Reported Reaction Past Psychological History: No Psychological Hx Reported Smoking Status: Current every day smoker Past Alcohol Use History: Occasional Past Drug Use History: None Reported - Past Family History Mother Family Medical History: Cancer General Exam Limitations: no limitations General appearance: alert, in no apparent distress Head exam: Present: atraumatic, normocephalic, normal inspection Eye exam: Present: normal appearance, PERRL, EOMI. Absent: scleral icterus, conjunctival injection, periorbital swelling ENT exam: Present: normal exam, mucous membranes moist Neck exam: Present: normal inspection. Absent: tenderness, meningismus, lymphadenopathy Respiratory exam: Present: normal lung sounds bilaterally. Absent: respiratory distress, wheezes, rales, rhonchi, stridor, accessory muscle use, decreased breath sounds, prolonged expiratory Cardiovascular Exam: Present: regular rate, normal rhythm, normal heart sounds. Absent: systolic murmur, diastolic murmur, rubs, gallop, clicks GI/Abdominal exam: Present: soft, tenderness (Positive RLQ and right flank tenderness. Positive McBurney's point. Negative Rovsing sign.), diminished bowel sounds, hypoactive bowel sounds. Absent: distended, guarding, rebound, rigid Extremities exam: Present: normal inspection, full ROM, normal capillary refill. Absent: tenderness, pedal edema, joint swelling, calf tenderness Back exam: Present: CVA tenderness (R). Absent: CVA tenderness (L) Neurological exam: Present: alert, oriented X3, CN II-XII intact Psychiatric exam: Present: normal affect, normal mood Skin exam: Present: warm, dry, intact, normal color. Absent: rash Course Vital Signs 03/21/25 03/21/25 03/21/25 13:52 16:07 17:23 Temperature 97.4 F L Pulse Rate 76 75 76 Respiratory 16 18 16 Rate Blood Pressure 148/94 151/91 149/109 O2 Sat by Pulse 99 97 97 Oximetry Medical Decision Making - Medical Decision Making Was pt. sent in by a medical professional or institution (, PA, RECEP, urgent care, hospital, or correction...) When possible be specific @ -No Did you speak to anyone other than the patient for history (EMS, parent, family, police, friend...)? What history was obtained from this source @ -No Did you review nursing and triage notes (agree or disagree)? Why? @ -I reviewed and agree with nursing and triage notes Were old charts reviewed (outside hosp., previous admission, EMS record, old EKG, old radiological studies, urgent care reports/EKG's, correction records)? Report findings @ -No old charts were reviewed Differential Diagnosis (chest pain, altered mental status, abdominal pain women, abdominal pain men, vaginal bleeding, weakness, fever, dyspnea, syncope, headache, dizziness, GI bleed, back pain, seizure, CVA, palpatations, mental health, musculoskeletal)? @ -Differential Abdominal Pain Men: Appendicitis, cholecystitis, diverticulosis, ischemic bowel, pancreatitis, hepatitis, UTI, gastroenteritis, AAA, incarcerated hernia, bowel obstruction, constipation, inflammatory bowel, hepatitis, peptic ulcer disease, splenic infarction, perforated viscus, testicular torsion, this is not meant to be an all-inclusive list EKG interpreted by me (3pts min.). @ -Not done X-rays interpreted by me (1pt min.). @ -None done CT interpreted by me (1pt min.). @ -AP CT shows no acute process with moderate diverticulosis without diverticuli tis, mild liver steatosis, normal appendix and no solid renal mass or hydronephrosis. U/S interpreted by me (1pt. min.). @ -None done What testing was considered but not performed or refused? (CT, X-rays, U/S, labs)? Why? @ -None What meds were considered but not given or refused? Why? @ -None Did you discuss the management of the patient with other professionals (professionals i.e. , PA, RECEP, lab, RT, psych nurse, administrator social welfare, dynamometer tuner, teacher, labor relations officer, case assistant)? Give summary @ -No Was smoking cessation discussed for >3mins.? @ -No Was critical care preformed (if so, how long)? @ -No Were there social determinants of health that impacted care today? How? (Homelessness, low income, unemployed, alcoholism, drug addiction, transportation, low edu. Level, literacy, decrease access to med. care, alf, rehab)? @ -No Was there de-escalation of care discussed even if they declined (Discuss DNR or withdrawal of care, Hospice)? DNR status @ -No What co-morbidities impacted this encounter? (DM, HTN, Smoking, COPD, CAD, Cancer, CVA, ARF, Chemo, Hep., AIDS, mental health diagnosis, sleep apnea, morbid obesity)? @ -None Was patient admitted / discharged? Hospital course, mention meds given and route, prescriptions, significant lab abnormalities, going to OR and other pertinent info. @ -Patient initially provided IV normal saline, Toradol and Dilaudid. Lab work shows very mild leukocytosis 10.39 and hyperglycemia 114. Kidney function, LFT, lactic acid and lipase unremarkable. UA shows trace blood and no UTI. AP CT shows no acute process with moderate diverticulosis without diverticulitis, mild liver steatosis, normal appendix and no solid renal mass or hydronephrosis. Patient provided additional IV Dilaudid due to ongoing pain and discharged with T3 starter pack. Motrin 800 sent to patient's pharmacy. Advised follow-up with PCP regarding any ongoing or worsening symptoms. Discussed patient with Dr. Atkinson. Undiagnosed new problem with uncertain prognosis? @ -No Drug Therapy requiring intensive monitoring for toxicity (Heparin, Nitro, Insulin, Cardizem)? @ -No Were any procedures done? @ -No Diagnosis/symptom? @ -Abdominal pain Acute, or Chronic, or Acute on Chronic? @ -Acute Uncomplicated (without systemic symptoms) or Complicated (systemic symptoms)? @ -Complicated Side effects of treatment? @ -No Exacerbation, Progression, or Severe Exacerbation? @ -No Poses a threat to life or bodily function? How? (Chest pain, USA, ID, pneumonia, PE, COPD, DKA, ARF, appy, cholecystitis, CVA, Diverticulitis, Homicidal, Suic idal, threat to staff... and all critical care pts) @ -No - Lab Data Result diagrams: 03/21/25 15:29 03/21/25 15:29 Lab Results 03/21/25 03/21/25 03/21/25 Range/Units 14:30 15:29 15:29 WBC 10.39 H (4.50-10.00) 10*3/uL RBC 5.11 (4.40-5.60) 10*6/uL Hgb 15.7 (13.0-17.0) g/dL Hct 44.1 (39.6-50.0) % MCV 86.3 (80.0-97.0) fL MCH 30.7 (27.0-32.0) pg MCHC 35.6 (32.0-37.0) g/dL Plt Count 230 (140-440) 10*3/uL MPV 10.1 (9.5-12.2) fL Immature Gran % (Auto) 0.7 % Neutrophils % 81.0 % Lymphocytes % 12.8 % Monocytes % 4.6 % Eosinophils % 0.4 % Basophils % 0.5 % Immature Gran # 0.07 H (0.00-0.04) 10*3/uL Neutrophils # 8.42 H (1.80-7.70) 10*3/uL Lymphocytes # 1.33 (0.90-5.00) 10*3/uL Monocytes # 0.48 (0.20-1.00) 10*3/uL Eosinophils # 0.04 (0.04-0.35) 10*3/uL Basophils # 0.05 (0.00-0.10) 10*3/uL Sodium 136 L (137-145) mmol/L Potassium 4.0 (3.5-5.1) mmol/L Chloride 101 (98-107) mmol/L Carbon Dioxide 25 (22-30) mmol/L Anion Gap 10 mmol/L BUN 12 (9-20) mg/dL Creatinine 0.67 (0.66-1.25) mg/dL Est GFR (CKD-EPI)AfAm >90 (>60 ml/min/1.73 sqM) Est GFR (CKD-EPI)NonAf >90 (>60 ml/min/1.73 sqM) Glucose 114 H (74-99) mg/dL Plasma Lactic Acid Indra (0.7-2.0) mmol/L Calcium 9.8 (8.4-10.2) mg/dL Total Bilirubin 0.8 (0.2-1.3) mg/dL AST 27 (17-59) U/L ALT 28 (4-49) U/L Alkaline Phosphatase 95 (38-126) U/L Total Protein 7.3 (6.3-8.2) g/dL Albumin 4.5 (3.5-5.0) g/dL Lipase 73 (23-300) U/L Urine Color Yellow Urine Appearance Clear (Clear) Urine pH 7.0 (5.0-8.0) Ur Specific [place] 1.031 (1.001-1.035) Urine Protein Trace H (Negative) Urine Glucose (UA) Negative (Negative) Urine Ketones Negative (Negative) Urine Blood Trace H (Negative) Urine Nitrite Negative (Negative) Urine Bilirubin Negative (Negative) Urine Urobilinogen <2.0 (<2.0) mg/dL Ur Leukocyte Esterase Negative (Negative) Urine RBC 6 H (0-5) /hpf Urine WBC 2 (0-5) /hpf Ur Squamous Epith Cells 1 (0-4) /hpf Urine Mucus Rare H (None) /hpf 03/21/25 Range/Units 15:29 WBC (4.50-10.00) 10*3/uL RBC (4.40-5.60) 10*6/uL Hgb (13.0-17.0) g/dL Hct (39.6-50.0) % MCV (80.0-97.0) fL MCH (27.0-32.0) pg MCHC (32.0-37.0) g/dL Plt Count (140-440) 10*3/uL MPV (9.5-12.2) fL Immature Gran % (Auto) % Neutrophils % % Lymphocytes % % Monocytes % % Eosinophils % % Basophils % % Immature Gran # (0.00-0.04) 10*3/uL Neutrophils # (1.80-7.70) 10*3/uL Lymphocytes # (0.90-5.00) 10*3/uL Monocytes # (0.20-1.00) 10*3/uL Eosinophils # (0.04-0.35) 10*3/uL Basophils # (0.00-0.10) 10*3/uL Sodium (137-145) mmol/L Potassium (3.5-5.1) mmol/L Chloride (98-107) mmol/L Carbon Dioxide (22-30) mmol/L Anion Gap mmol/L BUN (9-20) mg/dL Creatinine (0.66-1.25) mg/dL Est GFR (CKD-EPI)AfAm (>60 ml/min/1.73 sqM) Est GFR (CKD-EPI)NonAf (>60 ml/min/1.73 sqM) Glucose (74-99) mg/dL Plasma Lactic Acid Indra 1.3 (0.7-2.0) mmol/L Calcium (8.4-10.2) mg/dL Total Bilirubin (0.2-1.3) mg/dL AST (17-59) U/L ALT (4-49) U/L Alkaline Phosphatase (38-126) U/L Total Protein (6.3-8.2) g/dL Albumin (3.5-5.0) g/dL Lipase (23-300) U/L Urine Color Urine Appearance (Clear) Urine pH (5.0-8.0) Ur Specific [place] (1.001-1.035) Urine Protein (Negative) Urine Glucose (UA) (Negative) Urine Ketones (Negative) Urine Blood (Negative) Urine Nitrite (Negative) Urine Bilirubin (Negative) Urine Urobilinogen (<2.0) mg/dL Ur Leukocyte Esterase (Negative) Urine RBC (0-5) /hpf Urine WBC (0-5) /hpf Ur Squamous Epith Cells (0-4) /hpf Urine Mucus (None) /hpf Disposition Clinical Impression: Abdominal pain Disposition: HOME SELF-CARE Condition: Fair Instructions (If sedation given, give patient instructions): Abdominal Pain (ED) Additional Instructions: Alternate Tylenol/Motrin every 4 hours for pain. Follow-up with primary care for any ongoing or worsening symptoms. Prescriptions: Ibuprofen [Motrin] 800 mg PO Q8HR PRN #30 tab PRN Reason: Pain Is patient prescribed a controlled substance at d/c from ED?: No Referrals: Edenilson Caban MD [Primary Care Provider] - 1-2 days Time of Disposition: 16:56
[2025-03-21 15:46] LABS: Basophils # (A) 0.05 10*3/uL (0.00-0.10); Basophils % (A) 0.5 %; Eosinophils # (A) 0.04 10*3/uL (0.04-0.35); Eosinophils % (A) 0.4 %; HCT 44.1 % (39.6-50.0); HGB 15.7 g/dL (13.0-17.0); Lymphocytes # (A) 1.33 10*3/uL (0.90-5.00); Lymphocytes % (A) 12.8 %; MCH 30.7 pg (27.0-32.0); MCHC 35.6 g/dL (32.0-37.0); MCV 86.3 fL (80.0-97.0); Mean Platelet Volume 10.1 fL (9.5-12.2); Monocytes # (A) 0.48 10*3/uL (0.20-1.00); Monocytes % (A) 4.6 %; Neutrophils # (A) 8.42 10*3/uL (1.80-7.70); Platelet Count 230 10*3/uL (140-440); RBC 5.11 10*6/uL (4.40-5.60); RDW 11.8 % (11.5-14.5); WBC 10.39 10*3/uL (4.50-10.00)
[2025-03-21] MEDS: KETOROLAC 15 MG/ML 1 ML VIAL IVP STA (16:00)
[2025-03-21] MEDS: SODIUM CHLORIDE 0.9% 1,000 ML IV STA (16:00)
[2025-03-21] MEDS: HYDROmorphone 1 MG/ML 1 ML SYRINGE IVP STA ×2 (16:00→17:19)
[2025-03-21 16:21] LABS: ALT 28 U/L (4-49); AST 27 U/L (17-59); African American GFR (CKD) >90 (>60 ml/min/1.73 sqM); Albumin 4.5 g/dL (3.5-5.0); Alkaline Phosphatase 95 U/L (38-126); Anion Gap 10 mmol/L; Blood Urea Nitrogen 12 mg/dL (9-20); Calcium 9.8 mg/dL (8.4-10.2); Carbon Dioxide 25 mmol/L (22-30); Chloride 101 mmol/L (98-107); Glucose 114 mg/dL (74-99); Lipase 73 U/L (23-300); Non-African American GFR(CKD) >90 (>60 ml/min/1.73 sqM); Sodium 136 mmol/L (137-145); Total Bilirubin 0.8 mg/dL (0.2-1.3); Total Protein 7.3 g/dL (6.3-8.2)
--- NOTE | 2025-03-21 16:34 | CT ---
EXAMINATION TYPE: CT abdomen pelvis w con DATE OF EXAM: 03/21/2025 COMPARISON: None CLINICAL INDICATION: Male, 54 years old with history of Right flank pain; [facility], TECHNIQUE: Performed and , patient injected with mL of . CT DLP: mGycm CT CTDI: mGy Automated exposure control for dose reduction was used. FINDINGS: The lung bases are clear. The gallbladder is normal without distention, wall thickening, pericholecystic fluid or gallstones. T here is no biliary ductal dilatation. There is no focal mass or organomegaly involving the liver, pancreas, spleen or adrenal glands. Mild liver steatosis. There is no solid renal mass or hydronephrosis and there is homogeneous contrast enhancement of the r enal parenchyma. The caliber the abdominal aorta is normal is no retroperitoneal adenopathy or hemorrhage. The bowel loops are normal in caliber and there is no evidence of dilatation or obstruction. No infla mmatory changes are identified in the bowel wall or mesentery. The appendix is visualized and is norm al. There is moderate diverticulosis of the sigmoid colon without CT evidence of acute diverticulitis There is no free intraperitoneal air or fluid. No pelvic mass, free fluid, abscess or adenopathy. The osseous structures and soft tissues are intact. IMPRESSION: No acute changes within the abdomen or pelvis. Moderate diverticulosis without CT evidence of acute d iverticulitis. Mild liver steatosis. [facility] Dolly Gonzalez, , 03/21/2025 4:31 PM
[2025-03-21] MEDS: ACET/COD 300 MG/30 MG STARTER PACK 6 TAB BTL PO STA (17:18)
[2025-03-21 17:25] VITALS: BP 149/109; PULSE 76; RESP 16
== END 2025-03-21 17:25 | disposition home or self-care (01) ==
LOC: EC 13:35
DX: R10.31 Right lower quadrant pain (principal); F17.200 Nicotine dependence, unspecified, uncomplicated; Z88.0 Allergy status to penicillin
CPT/HCPCS: 36415; 80053; 83605; 83690; 85025; 81001; 74177; 99284; 96374; 96375; 96376; 96361; J1171; J1885; Q9967